=== PATIENT | male | born 1960 | race Caucasian/White ===

== ENCOUNTER 2022-01-04 14:05 | Emergency (ER) | payer OTHER, SELFPAY ==
--- NOTE | 2022-01-04 14:08 | ED.URI ---
HPI - URI/Sore Throat General Chief Complaint: Upper Respiratory Infection Stated Complaint: fever,fatigued,cough Time Seen by Provider: 01/04/22 14:08 Source: patient Mode of arrival: ambulatory Limitations: no limitations History of Present Illness HPI Narrative: Mr. Torrez is a 61-year-old male patient presenting to the clinic today with complaints of fever, fatigue, sinus pressure, headache, body aches, chills, joint pain, and nonproductive cough. He reports symptoms began on Saturday. He has taken 1 at home COVID test on Saturday and it was negative. Fever 39.3 ?C currently in the clinic. His has been around him and does not currently have any symptoms. No known COVID exposure, strep exposure, or influenza. He does report that he has had a lot of tick bites here recently and is concerned about Lyme's disease. MD elicited complaint: sore throat and nasal congestion Related Data Allergies Allergy/AdvReac Type Severity Reaction Status Date / Time No Known Allergies Allergy Verified 01/04/22 14:18 Review of Systems Review of Systems: Pertinent positives per HPI. Patient denies any rash, visual changes, dizziness, sore throat, shortness of breath, chest pain, palpitations, nausea, vomiting, diarrhea, constipation, abdominal pain, or any urinary issues. [facility] Family History Family History Mother Family history of lymphoma Social History Social History Smoking status: Never smoker Alcohol intake: current Comments At the time of my signature, I reviewed and agree with the nursing past medical, surgical, social, and family history. There is no relevant family history pertinent to the patient complaint. Exam Narrative: General: Well-developed, well nourished, moderately ill appearing Head: Normocephalic, atraumatic Eyes: Pupils equally round and reactive to light bilaterally, EOM intact, sclera and conjunctive clear, no discharge, lids normal Ears: TMs intact and clear, ear canals clear, no drainage, grossly hearing normal. Nose: Nares patent, clear nasal discharge, severe inflammation to anterior and posterior turbinates, frontal sinus tenderness. Mouth: Oropharynx without lesions or masses, good dentition, MMM. Postnasal drip Neck: Supple, trachea midline, no enlargement of anterior or posterior cervical nodes, no thyroid masses or goiter palpable. Cardio: Regular rate and rhythm, s1 and s2 normal, no murmur appreciated. Resp: Clear to auscultation bilaterally anteriorly and posteriorly, no rhonchi, rales, wheezing or rubs Course Course Emergency Course: Portions of this record may have been created with voice recognition software. Level of Care: Express Care Visit Vital Signs Vital signs: Vital Signs Temperature 39.3 C H 01/04/22 14:21 Pulse Rate 102 H 01/04/22 14:21 Respiratory Rate 18 01/04/22 14:21 Blood Pressure 120/93 H 01/04/22 14:21 Oxygen Delivery Room Air 01/04/22 14:21 Temperature 39.4 C H 01/04/22 15:02 Pulse Rate 102 H 01/04/22 14:21 Respiratory Rate 18 01/04/22 14:21 Blood Pressure 120/93 H 01/04/22 14:21 Oxygen Delivery Room Air 01/04/22 14:21 Vital signs reviewed MDM - URI/Sore Throat MDM Narrative Medical decision making narrative: At the time of visit patient is resting on the exam table. He has a temperature of 39.3 ?C. 800 mg of Motrin was ordered and given to the patient. COVID testing is negative in the clinic and he had a negative COVID test on Saturday. Patient is concerned that he may have Lyme's disease as he has had several tick bites in the recent past. He has no obvious rash but reports fatigue, body aches, joint pain, and high fever. Offered COVID PCR testing and patient declined at this time, unfortunately we are not able to do any blood work or x-rays in the clinic at this time. He has had symptoms for 5
[2022-01-04 14:21] VITALS: BP 120/93; PULSE 102; RESP 18; TEMP 39.3
[2022-01-04 14:39] VITALS: TEMP 39.3
[2022-01-04] MEDS: IBUPROFEN 400 MG TABLET 800 MG PO (14:39)
[2022-01-04 15:02] VITALS: TEMP 39.4
== END 2022-01-04 15:02 | disposition home or self-care (01) ==
PROVIDERS: Emergency Provider Nurse Practitioner Family
DX: B34.9 Viral infection, unspecified (principal); J01.10 Acute frontal sinusitis, unspecified; S40.869A Insect bite (nonvenomous) of unspecified upper arm, initial encounter; W57.XXXA Bitten or stung by nonvenomous insect and other nonvenomous arthropods, initial encounter; Z20.822 Contact with and (suspected) exposure to COVID-19
CPT/HCPCS: 87426; 99203; A9270; C9803; G0463